=== PATIENT | male | born 1950 | race Caucasian/White ===

== ENCOUNTER 2018-05-29 11:00 | Day surgery (SDC) | payer BC ==
[~2018-05-29] VITALS: Ht 188 cm; Wt 83.9 kg
--- NOTE | 2018-05-29 06:48 | Anethesia Preoperative Eval ---
Anesthesia Pre-op PMH/ROS General Date of Evaluation: May 29, 2018 Time of Evaluation: 06:47 Anesthesiologist: eunice Mallampati Score Class I : Soft palate, uvula, fauces, pillars visible Class II: Soft palate, uvula, fauces visible Class III: Soft palate, base of uvula visible Class IV: Only hard plate visible Surgeon: melita Diagnosis: macular pucker Allergies: Coded Allergies: No Known Allergies (Unverified , 05/28/18) Milla Banda MD May 29, 2018 06:48
[~2018-05-29 11:00] MED LIST: Atropine Sulfate 0.4mg/ml inj IVP PRN; DiphenhydrAMINE 50mg/ml Inj IVP PRN; Midazolam 2mg/2ml Inj IVP PRN; fentaNYL 100 mcg/2 mL IV PRN
[2018-05-29] MEDS ORDERED: Cyclopentolate 1% Opth Sol 2ml ONE (11:35)
[2018-05-29] MEDS ORDERED: Phenylephrine 2.5% Op 2ml Soln ONE (11:35)
[2018-05-29] MEDS: Cyclopentolate 1% Opth Sol 2ml RIGHT EYE SCH ×3 (11:45→12:13)
[2018-05-29] MEDS: Phenylephrine 2.5% Op 2ml Soln RIGHT EYE SCH ×3 (11:45→12:13)
[2018-05-29 11:56] VITALS: BP 123/72
[2018-05-29] MEDS ORDERED: LOSARTAN POTASS25 MG ORAL (12:08)
[2018-05-29] MEDS ORDERED: CRESTOR20 MG ORAL (12:08)
[2018-05-29] MEDS ORDERED: Pred Forte 1% Opth Susp 1ml ONE (12:22)
[2018-05-29] MEDS ORDERED: Maxitrol Opth Oint 3.5gm ONE (12:22)
[2018-05-29] MEDS ORDERED: Goniotaire 2.5% Opth Soln - 15ml ONE (12:22)
[2018-05-29] MEDS ORDERED: Lidocaine 2% MPF 5ml Vial INJ ONE (12:22)
[2018-05-29] MEDS ORDERED: Kenalog-40 1ml Vial ONE (12:22)
[2018-05-29] MEDS ORDERED: Kenalog-10 5ml Inj ONE (12:23)
[2018-05-29] MEDS ORDERED: BSS 15ml BTL ONE (12:23)
[2018-05-29] MEDS ORDERED: BSS 500ml btl ONE (12:23)
[2018-05-29] MEDS ORDERED: Dexamethasone 4mg/ml vial ONE (12:23)
[2018-05-29] MEDS ORDERED: Povidone-Iodine 5% opth solution ONE (12:23)
[2018-05-29] MEDS ORDERED: Tetracaine 0.5% Opth 4ml Soln ONE (12:24)
[2018-05-29] MEDS ORDERED: Bupivacaine 0.75% 30ml vial INJ ONE (12:24)
[2018-05-29] MEDS ORDERED: Triamcinolone 40mg/ml PF Vial ONE (12:24)
[2018-05-29] MEDS ORDERED: Indocyanine Green 25mg Inj INJ ONE (12:30)
[2018-05-29] MEDS ORDERED: EPINEPHrine 1mg/1ml Amp ONE ×2 (12:51→13:04)
--- NOTE | 2018-05-29 13:10 | Pre-Procedure Note/Attestation ---
Pre-Procedure Note/Attestation Complete Prior to Procedure Planned Procedure: left Procedure Narrative: ppv/mp os Indications for Procedure Pre-Operative Diagnosis: Epiretinal membrane OS Attestation I attest that I discussed the nature of the procedure; its benefits; risks and complications; and alternatives (and the risks and benefits of such alternatives ), prior to the procedure, with the patient (or the patient's legal livestock sales representative). I attest that, if there was a reasonable possibility of needing a blood transfusion, the patient (or the patient's legal livestock sales representative) was given the [facility] standardized written summary, pursuant to the Antoni Neno Blood Safety Act ([place] Health and Safety Code # 1645, as amended). I attest that I re-evaluated the patient just prior to the surgery and that there has been no change in the patient's H&P, except as documented below: Ozzy Herrera MD May 29, 2018 13:09
[2018-07-09] MEDS ORDERED: ASPIR 8181 MG ORAL (11:10)
[2018-07-10] MEDS ORDERED: Phenylephrine 2.5% Op 2ml Soln RIGHT EYE SCH (08:00)
[2018-07-10] MEDS ORDERED: Cyclopentolate 1% Opth Sol 2ml RIGHT EYE SCH (08:00)
== END 2018-07-10 16:15 | disposition home or self-care (01) ==
LOC: SUR 11:00
DX: H35.371 Puckering of macula, right eye (principal)
CPT/HCPCS: J3300